=== PATIENT | female | born 1950 | race Caucasian/White ===

== ENCOUNTER → 2021-04-14 16:36 | Outpatient (CLI) | payer OTHER, MEDICARE, SELFPAY ==
[2021-04-14 18:31] LABS: Add Manual Diff / Slide Review NO; Basophils Absolute Auto 100 /uL (0-100); Basophils Percent Auto 1.2 % (0-2); Eosinophils Absolute Auto 200 /uL (0-450); Hematocrit 37.2 % (36-46); Hemoglobin 12.8 g/dL (12.0-16.0); Lymphocytes Absolute Auto 2700 /uL (1100-4500); Lymphocytes Percent Auto 30.8 % (25-40); Mean Corpuscular HGB Conc 34.4 % (30-36); Mean Corpuscular Hemoglobin 30.2 PG (26-34); Mean Corpuscular Volume 87.9 fL (80-100); Monocytes Absolute Auto 700 /uL (0-900); Neutrophils Absolute Auto 5000 /uL (1500-7000); Platelet Count 303 X10^3/uL (150-400); Red Blood Cell Count 4.23 X10^6/uL (4.0-5.2); Red Cell Distribution Width 13.3 % (11.6-14.8); White Blood Cell Count 8.6 X10^3/uL (4.5-11.0)
[2021-04-14 18:42] LABS: INR 1.1 (0.9-1.3); Prothrombin Time 11.9 SECONDS (10.1-12.7)
[2021-04-14 18:44] LABS: PTT Partial Thromboplastin Tim 33 SECONDS (26.4-36.2)
== END ==
PROVIDERS: PCP Family Medicine; Referring Provider Orthopaedic Surgery Orthopaedic Surgery of the Spine; Visit Provider Orthopaedic Surgery Orthopaedic Surgery of the Spine
DX: Z01.812 Encounter for preprocedural laboratory examination (principal); Z51.81 Encounter for therapeutic drug level monitoring
CPT/HCPCS: 36415; 85025; 85610; 85730

== ENCOUNTER → 2021-04-22 11:15 | Outpatient (CLI) | payer OTHER, MEDICARE, SELFPAY ==
[2021-04-22 12:50] LABS: COVID19 -Nasal RAPID Negative (Negative)
== END ==
PROVIDERS: PCP Family Medicine; Visit Provider Physician Assistant
DX: Z01.812 Encounter for preprocedural laboratory examination (principal); Z20.822 Contact with and (suspected) exposure to COVID-19
CPT/HCPCS: 87635

== ENCOUNTER 2021-04-24 11:46 | Observation (INO) | payer OTHER, MEDICARE, SELFPAY ==
[2021-04-17 09:41] VITALS: BMI 27.1
[2021-04-24] VITALS (15 sets, daily range): BP systolic 92–142; BP diastolic 31–88; PULSE 76–93; RESP 10–93; TEMP 35.8–36.9; O2SAT 16–99; BMI 27.1
[2021-04-24] MEDS: LACTATED RINGERS 1,000 ML 42 ML IV ×4 (12:53→17:15)
--- NOTE | 2021-04-24 13:04 | PM.PREOP ---
Pre-operative Note COVID-19 COVID-19 status: Negative Result date/Date tested (Pos, Neg/Pending): 04/22/21 Interval Note History & Physical reviewed/Exam performed by Physician: Yes Changes to H&P: No
[2021-04-24] MEDS: CEFAZOLIN 1 GM VIAL 2 GM IV ×2 (14:00→21:14)
--- NOTE | 2021-04-24 14:24 | SUR.OPER ---
Supine, head on gel donut. Tape across forehead secured to bed, Arms padded with gel pads, tucked at sides, towel roll under shoulders. Safety belt at thigh. pillow under knees, gel pad under bilateral heels, Legs uncrossed.
[2021-04-24] MEDS: THROMBIN (RECOMBINANT) 5,000 UNIT VIAL 5000 UNIT TOP ×2 (15:12→15:36)
[2021-04-24] MEDS: TRANEXAMIC ACID 1,000 MG in SODIUM CHLORIDE 0.9% 100 ML 200 ML IV (15:35)
--- NOTE | 2021-04-24 16:22 | DI.RAD.S_ITS ---
PROCEDURE: XR CERVICAL SPINE 2V OR 3V INDICATIONS: c4-5 ACDF TECHNIQUE: 2 view(s) of the cervical spine were acquired. COMPARISON: None. FINDINGS: Bones: Anterior cervical discectomy and plate fixation across the C4-C5 level with interbody disc spacer in place shows normal alignment. Soft tissues: No prevertebral soft tissue swelling. IMPRESSION: Normal alignment after C4-C5 anterior discectomy and fusion procedure. Fusion plate appears normal. Dictated by: Elver Lundberg M.D. on 04/24/2021 at 16:59 Approved by: Elver Lundberg M.D. on 04/24/2021 at 17:00
--- NOTE | 2021-04-24 16:36 | PM.OP.1 ---
Operative Date/Time/Diagnoses Date of procedure: 04/24/21 Time of procedure: 13:40 Pre-op diagnosis: 1. C4-5 spinal stenosis 2. C4-5 spondylosis with radiculopathy Post-op diagnosis: same Procedure & Clinicians Procedure: 1. C4-5 anterior cervical discectomy and fusion 2. C4-5 anterior interbody cage placement. 3. C4-5 anterior instrumentation with plate and screws 4. Utilization of microsurgical technique and operating microscope Same procedure as scheduled: Yes Indications: Patient has been having chronic neck pain and worsening cervical radiculopathy. Patient failed multiple conservative management with worsening pain weakness and numbness in her upper extremity. Patient has been having difficulty performing activity of daily living. After discussing risks benefits of treatment options, patient elected proceed with surgery. Surgeon: Nato Nassar Linux System Administrator: Raymond Centeno Click Yes if Unassisted: No Anesthesia Type: General Operative Notes Closure Type: primary Specimen(s): none sent Prosthetic devices, grafts, tissues, transplants, or devices: Extend plate, PEEK cage Estimated Blood Loss (mL): 1,000 Blood products transfused: none Procedure in detail: Patient was seen in the preoperative area. Risks and benefits of the surgery was discussed with the patient. Informed consent was obtained from the patient and placed in the chart. Surgical site was marked. Patient was taken to the operative room. General anesthesia was administered. Prophylactic antibiotic was given to the patient less than 30 min before the incision was made. Patient was placed into a supine position on a radiolucent table. Patient's shoulders were taped down to allow proper C-arm imaging. Anterior cervical area was prepped and draped in a sterile fashion. Time-out was performed at this time. Using lateral C-arm imaging, the level between C4 and C5 was identified and marked on patient's neck. A oblique incision from midline towards medial border of sternocleidomastoid muscle was made. The platysma muscle was incised in line with skin incision. Metzenbaum scissor was used to develop the plane between the medial border of sternocleidomastoid d and the strap muscles medially. The carotid sheath and its contents were identified and protected behind the hand-held retractor during the entire case. The plane between the carotid sheath and strap muscles was developed with Metzenbaum scissors. Dissection was made down to the level of the anterior cervical fascia. Longus colli muscle was incised on the anterior aspect of vertebral bodies bilaterally from C4-5. Spinal needle was placed into the C4-5 disc space and confirmed with lateral C-arm imaging. During dissection through longus coli to expose anterior vertebral body and disc space at C4-5 level, arterial blood was encountered through the dissection. Microscope was used to further evaluate the bleeding. The source of bleeding was not able to be visualized. The arterial bleeding comes from adjacent to the anterior lateral cortex of C4-5 endplates on the left side. Gelfoam and thrombin was used in combination as tamponade/hemostasis agent. Good hemostasis was accomplished by using the combination of the 2 agents. During the process of attempting to achieve hemostasis approximately 950 cc of blood was lost. The carotid artery and contents of the carotid sheath was protected during the hand held retractors during the entire procedure and the bleeding was not related to structures inside the carotid sheath or as a branch of carotid artery. Patient's carotid artery pulse was palpable and the source of bleeding is significantly more posterior compared to the level of the carotid artery. At this time decision was made to perform the anterior cervical diskectomy and C4-5 level and postpone the surgery at C3-4 level for the concerns of additional bleeding. Using microsurgical technique and operative microscope, anterior cervical diskectomy was performed at C4-5 level. This was done by removing the disc material, removing the anterior and posterior osteophytes posterior longitudinal ligaments along with performing bilateral foraminotomies at the C4-5 levels. Patient was found to have severe foraminal stenosis. Patient's stenosis was fully decompressed after decompression was completed. After the diskectomy was completed, an anterior interbody cage was obtained. The cage was packed with DBM bone grafting material. One cage each along with the bone grafting material was then packed into the interbody space at C4-5 along with an anterior cervical plate. The cervical plate was stabilized to the C4-5 vertebrae using screws. After confirming placement of the hardware with AP and lateral C-arm imaging, the screws were locked into the plate using the locking mechanism and torque limiting screwdriver. During the course of the anterior cervical diskectomy and fusion portion of the procedure, there was minimal bleeding. A OSWALDO drain was placed deep to the platysma muscle and was secured the patient's skin after the drain was placed. I plan to leave the drain at least overnight and possibly discharge the patient with the drain in case of additional bleeding that takes place. After the hardware was placed and confirmed with AP and lateral C-arm imaging, the wound was irrigated with sterile normal saline. The platysma muscle and the subcutaneous tissue was closed with 2-0 Vicryl. The skin was closed with 4-0 Monocryl and Steri-Strips. Patient tolerated the procedure well. Patient was transferred recovery room in stable condition. Complications: none Post-operative Condition: stable Disposition: PACU Plan for aftercare: Admit to inpatient hospital
[2021-04-24] MEDS: LORazepam 2 MG/ML INJ 0.25 MG IV ×2 (16:49→17:00)
[2021-04-24] MEDS: fentaNYL 100 MCG/2 ML INJ IV (17:12)
--- NOTE | 2021-04-24 17:15 | SUR.PHASEI ---
Pt received to PACU at 1616. Airway patent, self maintained. Report from ISABEL Mercado and Dr Duong.
--- NOTE | 2021-04-24 17:16 | SUR.PHASEI ---
Blood sugar: 1626 - glucocheck result = 231 on right finger. Pt monitor = 123. 1630 - glucocheck result = 218 on left finger. Pt monitor = 141. 1700 - Dr Duong at bedside. Updated on status. Lab at bedside to draw CBC. Blood glucose added by Dr Duong. Nausea - 1630 - Pt states nauseated. Ice pack placed behind neck. Quesease taped to neck brace. Few ice chips given to wet mouth. Ativan x2 given. 1715 -Pt currently dozing. Bleeding - Scant bloody drng in OSWALDO. Neck dressing remains D/I. SBP remains 90-100's after hydrolozine in the OR. MAP 50's-60's. Heart rate 80-90's.
[2021-04-24 17:19] LABS: Add Manual Diff / Slide Review NO; Basophils Absolute Auto 0 /uL (0-100); Basophils Percent Auto 0.4 % (0-2); Eosinophils Absolute Auto 0 /uL (0-450); Eosinophils Percent Auto 0.3 % (2-4); Hematocrit 25.1 % (36-46); Hemoglobin 8.5 g/dL (12.0-16.0); Lymphocytes Absolute Auto 900 /uL (1100-4500); Lymphocytes Percent Auto 8.9 % (25-40); Mean Corpuscular HGB Conc 33.9 % (30-36); Mean Corpuscular Volume 88.4 fL (80-100); Monocytes Absolute Auto 100 /uL (0-900); Monocytes Percent Auto 1.3 % (3-14); Neutrophils Absolute Auto 9300 /uL (1500-7000); Neutrophils Percent Auto 89.1 % (50-75); Platelet Count 225 X10^3/uL (150-400); Red Blood Cell Count 2.84 X10^6/uL (4.0-5.2); White Blood Cell Count 10.4 X10^3/uL (4.5-11.0)
[2021-04-24] MEDS: SODIUM CHLORIDE 0.9% 1,000 ML 100 ML IV (19:02)
[2021-04-24] MEDS: ATORVASTATIN 20 MG TABLET 40 MG PO (21:13)
[2021-04-24] MEDS: SENNOSIDES 8.6 MG TABLET 17.2 MG PO (21:13)
[2021-04-24] MEDS: DOCUSATE 100 MG CAPSULE PO (21:14)
[2021-04-24] MEDS: VALSARTAN 80 MG TABLET PO (21:14)
[2021-04-24] MEDS: METOPROLOL ER 50 MG TABLET PO (21:14)
[2021-04-24] MEDS: MONTELUKAST 10 MG TABLET PO (21:14)
[2021-04-24] MEDS: OXYCODONE IR 5 MG TABLET PO (21:14)
[2021-04-24] MEDS: LORazepam 1 MG TABLET PO (21:20)
[2021-04-25] MEDS: HYDROMORPHONE 0.5 MG INJ 0.2 MG IV (01:57)
[2021-04-25 02:00] VITALS: BP 108/53; PULSE 88; RESP 20; TEMP 35.9; O2SAT 95
[2021-04-25] MEDS: OXYCODONE IR 5 MG TABLET PO ×4 (02:42→11:50)
[2021-04-25 05:00] VITALS: BP 118/61; PULSE 85; RESP 14; TEMP 36.4; O2SAT 98
[2021-04-25] MEDS: CEFAZOLIN 1 GM VIAL 2 GM IV (05:23)
[2021-04-25] MEDS: SODIUM CHLORIDE 0.9% 1,000 ML 100 ML IV (05:24)
[2021-04-25 06:05] LABS: Hematocrit 27.4 % (36-46); Hemoglobin 9.2 g/dL (12.0-16.0)
[2021-04-25] MEDS: LEVOTHYROXINE 125 MCG TABLET PO (06:59)
[2021-04-25] MEDS: ACETAMINOPHEN 325 MG TABLET 650 MG PO (08:31)
[2021-04-25] MEDS: CHOLECALCIFEROL (VITAMIN D3) 1,000 UNIT TABLET 1000 UNIT PO (08:35)
[2021-04-25] MEDS: LORATADINE 10 MG TABLET PO (08:35)
[2021-04-25] MEDS: DOCUSATE 100 MG CAPSULE PO (08:36)
--- NOTE | 2021-04-25 09:47 | P.PN_ITS ---
Exam Vital Signs (past 8 hours): - 04/25/21 02:00 04/25/21 05:00 Temperature 96.7 F L 97.5 F L Pulse Rate 88 85 Respiratory Rate 20 14 Blood Pressure 108/53 L 118/61 Pulse Oximetry 95 98 Oxygen Delivery Method Room Air,CPAP Oxygen Flow Rate 1 Objective Labs Result Diagrams: 04/25/21 05:43 Labs: Laboratory Results - last 24 hr 04/24/21 04/25/21 17:06 05:43 WBC 10.4 RBC 2.84 L Hgb 8.5 L 9.2 L Hct 25.1 L 27.4 L MCV 88.4 MCH 30.0 MCHC 33.9 RDW 13.0 Plt Count 225 Neut % (Auto) 89.1 H Lymph % (Auto) 8.9 L [place] % (Auto) 1.3 L Eos % (Auto) 0.3 L Baso % (Auto) 0.4 Neut # (Auto) 9300 H Lymph # (Auto) 900 L [place] # (Auto) 100 Eos # (Auto) 0 Baso # (Auto) 0 PFSH Medical History (Updated 04/17/21 @ 13:58 by Mary Pham RN) Anxiety Arthritis Asthma 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 Diverticulosis Fatty liver Fibromyalgia Gastroparesis Hearing impaired Histoplasmosis HLD (hyperlipidemia) HTN (hypertension) Hypothyroid Insulin pump in place MRSA (methicillin resistant Staphylococcus aureus) Neuropathy NSVT (nonsustained ventricular tachycardia) (2015) ROLANDO on CPAP Palpitations RAD (reactive airway disease) Skin cancer Tachycardia Type 1 diabetes Surgical History (Updated 04/17/21 @ 10:42 by Mary Pham RN) History of bowel resection History of lobectomy of lung (1986) History of lumbar surgery History of repair of left rotator cuff History of repair of right rotator cuff History of surgery History of total right hip arthroplasty Hx of appendectomy Hx of bilateral cataract extraction Hx of cervical spine surgery (2007) Hx of cholecystectomy Hx of hand surgery Hx of hand surgery Hx of sinus surgery Hx of tonsillectomy S/P MAHNAZ-BSO (total abdominal hysterectomy and bilateral salpingo-oophorectomy) Social History household members: children Smoking Status: Never smoker alcohol intake: never Assessment & Plan Assessment & Plan narrative: POD#1 s/p C4-5 ACDF. Patient had intra-operative vascular injury responded to temponade with gemfoam and thrombin. 30 cc from OSWALDO drain since surgery. She is doing well with normal BP and pulse and HCT is 27 this am improved from 25 yesterday. Her dressing is clean and dry. Patient is neurovascularly intact on exam. Her neck is supple, no significant swelling and no sign or symptoms or residual active bleeding. Mild hoarseness in her speaking voice and mild sore throat with swallowing as expected post op day 1 s/p ACDF. Patient is doing well. Patient reports improved pain level that was severe and radiates down her shoulders since surgery. The severe radiating pain down both shoulders were here previous chief complaint, this has resolved since she woke up from surgery. I discussed with her and her daughter her surgery, the decision to not operated on C3-4 level and her intraoperative bleeding. She is doing well and mobile with good pain control. I discussed discharge to home today and patient and her daughter both think they are ready to discharge to home today. I will let her complete her PT session. Plan to d/c today to home. I will d/c her with her OSWALDO drain and educated her and her daughter in case of emergent bleeding surgery how to use the drain to help decompress patient's neck/wound to protect airway. Patient and daughter both understands instructions for activity and drain management and plans for discontinue the drain on Tuesday in my [facility]. Quality VTE Deep Vein Thrombosis/Pulmonary Embolism Present on Admission: No
--- NOTE | 2021-04-25 09:53 | OT.IP.EVAL ---
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 Diverticulosis Fatty liver Fibromyalgia Gastroparesis Hearing impaired Histoplasmosis History of bowel resection History of lobectomy of lung (1986) History of lumbar surgery History of repair of left rotator cuff History of repair of right rotator cuff History of surgery History of total right hip arthroplasty HLD (hyperlipidemia) HTN (hypertension) Hx of appendectomy Hx of bilateral cataract extraction Hx of cervical spine surgery (2007) Hx of cholecystectomy Hx of hand surgery Hx of hand surgery Hx of sinus surgery Hx of tonsillectomy Hypothyroid Insulin pump in place MRSA (methicillin resistant Staphylococcus aureus) Neuropathy NSVT (nonsustained ventricular tachycardia) (2015) ROLANDO on CPAP Palpitations RAD (reactive airway disease) S/P MAHNAZ-BSO (total abdominal hysterectomy and bilateral salpingo-oophorectomy) Skin cancer Tachycardia Type 1 diabetes Surgical History (Last Updated 04/17/21 @ 10:42 by Mary Pham, RN) History of bowel resection History of lobectomy of lung (1986) History of lumbar surgery History of repair of left rotator cuff History of repair of right rotator cuff History of surgery History of total right hip arthroplasty Hx of appendectomy Hx of bilateral cataract extraction Hx of cervical spine surgery (2007) Hx of cholecystectomy Hx of hand surgery Hx of hand surgery Hx of sinus surgery Hx of tonsillectomy S/P MAHNAZ-BSO (total abdominal hysterectomy and bilateral salpingo-oophorectomy) Occupational Therapy Inpatient Evaluation/Re-Eval M1 PT/OT-IP Prior Functional Status Start: 04/25/21 11:18 Freq: NEEDED Status: Active Protocol: Document 04/25/21 11:18 CGR (Rec: 04/25/21 11:32 CGR [id number]) Medical Review Prior Functional Status Medical History Reviewed Yes Communication Pt is an effective verbal communicator Mobility and Gait Pt was IND at baseline Activities of Daily Living and IADL's Pt was IND in ADLs at baseline . Pt states she sometimes uses LB dressing equipment d/t a previous R RICARDO. Social History Household Members children Living Arrangements House Number of Floors (Floors) Two Floors Number of Stairs To Enter/Railing? Pt lives on the first floor and does not need to go to the second floor. Pt has 3 steps to enter with L rail assending . Home Environment Standard Height Toilet,Walk in Shower Home Equipment Front Wheel Walker,Raised Toilet Seat w/Armrests,Shower Seat with Backrest,Grab Bars In Shower Additional Social History Comment Adjustable bed with L side rail. M2 OT-IP Current Condition Start: 04/25/21 11:18 Freq: Status: Active Protocol: Document 04/25/21 11:18 CGR (Rec: 04/25/21 11:32 CGR [id number]) Occupational Therapy Current Condition Current Condition Evaluation Date 04/25/21 Treatment Diagnosis c4-5 ACDF Diagnosis Onset Date 04/24/21 Post Operative Precautions Cervical Spine Precautions Soft Collar for Comfort,No Heavy Lifting,Log Roll M3 OT- IP Subjective and Pain Start: 04/25/21 11:18 Freq: Status: Active Protocol: Document 04/25/21 11:18 CGR (Rec: 04/25/21 11:32 CGR [id number]) OT- Subjective Occupational Therapy Visit Type Type Initial Evaluation Visit Start Time 09:28 Visit Stop Time 09:53 Total Visit Minutes 25 OT Pain Assessment Pain When Pain Assessed At Rest Pain Present Pain Present Pain Reported Location neck Intensity 4 Scale Used Numeric (0 - 10) Management Techniques Distraction,Modification of Treatment,Re-positioning, Timing of Activity with Medications M4 OT- IP ADL's Start: 04/25/21 11:18 Freq: Status: Active Protocol: Document 04/25/21 11:18 CGR (Rec: 04/25/21 11:32 CGR [id number]) OT [id number] Comments OT Self-Feeding Comments Not meal time but pt states that she was able to eat breakfast without difficulty. OT ADL-Grooming General Evaluation Grooming Ability Independent Areas Needing Assistance Face Washing Comments OT Grooming Comments standing at sink OT ADL-Oral Care General Eval Oral Care Ability Independent Areas of Assistance Brushing Teeth,Retrieving/Set- Up of Items Comments Oral Care Comments standing at sink OT ADL-Dressing General Eval Lower Body Dressing Ability Independent Areas Needing Assistance Socks Comments OT Dressing Comments seated EOB OT ADL-Toileting General Evaluation Toileting Ability Independent Comments OT Toileting Comments seated on toielt, pt states she feels like she needs to urinate but was unable. OT ADL-Bathing Comments OT Bathing Comments not performed M5 OT- IP IADL's Start: 04/25/21 11:18 Freq: Status: Active Protocol: Document 04/25/21 11:18 CGR (Rec: 04/25/21 11:32 CGR [id number]) OT-Instrumental Activities of Daily Living Deficits IADL Deficits Identified No Deficits Home Safety Awareness Awareness of Need for Assistance at Home Good Awareness Ability to Problem Solve Emergency Able to Problem Solve Situations Medication Management Medication Management No Deficits Identified Money Management Money Management No Deficits Identified Meal Preparation Meal Preparation No Deficits Identified Latrine Cleaner Latrine Cleaner No Deficits Identified Driving Driving Comments PT is an active driver supervisor. M6 OT- IP Functional Cognition Start: 04/25/21 11:18 Freq: Status: Active Protocol: Document 04/25/21 11:18 CGR (Rec: 04/25/21 11:32 CGR [id number]) Cognitive Factors Limiting Selfcare Function Cognitive Ability Level of Alertness Alert Patient Orientation Name,Age,Birthday,Month,Date, Year,Day of Week,Place, Situation Attention Span Ability Capable of Focused Attention, Capable of Sustained Attention Ability to Follow Commands Able to Follow One Step Commands with Increased Time, Able to Follow One Step Commands with Repetition OT- Vision and Hearing OT- Hearing Assessment OT- Hearing Assessment Hearing Impaired,Use of Hearing Aids OT- Vision Assessment Vision History Cataracts Visual Acuity Glasses For Reading Visual Attentiveness WFL Occular Pursuits WFL Visual Convergence WFL M7 OT- IP Mobility and Balance Start: 04/25/21 11:18 Freq: Status: Active Protocol: Document 04/25/21 11:18 CGR (Rec: 04/25/21 11:32 CGR [id number]) OT- Bed Mobility Assessment Rolling Type of Rolling Log Rolling,Roll to Right Level of Assistance Independent Supine to Sit Supine to Sit Assist Independent Scooting Scooting to Edge of Bed Independent OT-Transfer Assessment Sit to and From Stand Sit to and from Stand Independent Transfers Transfer Ability Independent Technique Transfer Destination Bed,Chair,Toilet Transfer Technique Stand Step Pivot Devices Transfer Assistive Devices Gait Belt,Front Wheeled Walker Comments Mobility Comments Pt ambulated around the room with the use of the 2ww and IND. OT- Balance Assessment Sitting Balance and Reactions Static Sitting Balance Ability Normal Dynamic Sitting Balance Ability Normal M8 OT- IP Objective Assessments Start: 04/25/21 11:18 Freq: Status: Active Protocol: Document 04/25/21 11:18 CGR (Rec: 04/25/21 11:32 CGR [id number]) OT Gross Range of Motion Upper Extremity Range of Motion Assessment Within Functional Limits OT Strength Upper Extremity Strength Assessment Within Functional Limits OT- Coordination Assessment Upper Extremity Finger to Nose Test Within Functional Limits Finger Tapping Test Within Functional Limits OT-Muscle Tone Assessment Muscle Tone WNL Yes OT Sensation Assessment Edema Edema Absent M9 OT- IP Assessment and Plan Start: 04/25/21 11:18 Freq: Status: Active Protocol: Document 04/25/21 11:18 CGR (Rec: 04/25/21 11:32 CGR [id number]) OT Summary Assessment and Plan Potential Rehabilitation Potential Excellent Analytic Complexity at Evaluation Low Summary OT Impairments Pain Progress Towards Goals Safe For Discharge Assessment Summary Pt presents as a low complexity evaluation s/p admit for C4-5 ACDF. Pt presents as IND with walker and is able to care for herself without assist at this time. Pt lives with daughter who will help if needed. No further OT needs. Frequency of Treatment Frequency Of Treatment Discharge Discharge Recommendations OT Discharge Recommendations Home Transportation Needs at Discharge Private Vehicle
--- NOTE | 2021-04-25 10:15 | PT.IIE ---
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 Diverticulosis Fatty liver Fibromyalgia Gastroparesis Hearing impaired Histoplasmosis HLD (hyperlipidemia) HTN (hypertension) Hypothyroid Insulin pump in place MRSA (methicillin resistant Staphylococcus aureus) Neuropathy NSVT (nonsustained ventricular tachycardia) (2015) ROLANDO on CPAP Palpitations RAD (reactive airway disease) Skin cancer Tachycardia Type 1 diabetes Physical Therapy Inpatient Evaluation/Re-Eval M1 PT/OT-IP Prior Functional Status Start: 04/25/21 11:18 Freq: NEEDED Status: Active Protocol: Document 04/25/21 11:18 CGR (Rec: 04/25/21 11:32 CGR [id number]) Medical Review Prior Functional Status Medical History Reviewed Yes Communication Pt is an effective verbal communicator Mobility and Gait Pt was IND at baseline Activities of Daily Living and IADL's Pt was IND in ADLs at baseline . Pt states she sometimes uses LB dressing equipment d/t a previous R RICARDO. Social History Household Members children Living Arrangements House Number of Floors (Floors) Two Floors Number of Stairs To Enter/Railing? Pt lives on the first floor and does not need to go to the second floor. Pt has 3 steps to enter with L rail assending . Home Environment Standard Height Toilet,Walk in Shower Home Equipment Front Wheel Walker,Raised Toilet Seat w/Armrests,Shower Seat with Backrest,Grab Bars In Shower Additional Social History Comment Adjustable bed with L side rail. M2 PT-IP Current Condition Start: 04/25/21 11:48 Freq: NEEDED Status: Active Protocol: Document 04/25/21 10:15 AB (Rec: 04/25/21 12:01 AB [id number]) Physical Therapy Current Condition Current Condition Evaluation Date 04/25/21 Treatment Diagnosis s/p C4-5 ACDF; difficulty in walking Onset Date 04/24/21 Precautions Cervical Spine Precautions Soft Collar for Comfort,No Heavy Lifting,Log Roll M3 PT-IP Subjective Start: 04/25/21 11:48 Freq: NEEDED Status: Active Protocol: Document 04/25/21 10:15 AB (Rec: 04/25/21 12:01 [email or web address]) Subjective Physical Therapy Visit Type Type Initial Evaluation Visit Start Time 10:15 Visit Stop Time 10:50 Total Visit Minutes 35 Number of METAL EXTRUSION SUPERVISOR Visits 0 Physical Therapy Visit Comments Patient Comments pt is agreeable to do PT Therapy Pain Assessment Pain When Pain Assessed At Rest Pain Present Pain Present Pain Reported Location neck Intensity 3 Scale Used Numeric (0 - 10) Pain Management Techniques Apply Cold,Distraction, Modification of Treatment,Re- positioning,Timing of Activity with Medications M4 PT-IP Mobility and Gait Start: 04/25/21 11:48 Freq: NEEDED Status: Active Protocol: Document 04/25/21 10:15 AB (Rec: 04/25/21 12:01 [email or web address]) PT-Bed Mobility Assessment Rolling Type of Rolling Log Rolling Level of Assist Standby Assistance Supine to Sit Supine to Sit Standby Assistance Sit to Supine Sit to Supine Standby Assistance PT-Transfer Assessment Sit to and From Stand Sit to and from Stand Standby Assistance,Use of Upper Extremities Equipment Transfer Assistive Device Gait Belt,Front Wheeled Walker Orthotic/Prosthetic Devices or Brace: Yes Transfers Transfer Destination Bed,Chair Transfer Technique ambulated using FWW Transfer Ability Level of Assist Standby Assistance Comments Mobility Comments reviewed cervical precautions with pt and pt able to recall. pt already seated on chair and agreed to do PT. completed sit to stand SBA and ambulated to the bed using FWW SBA. demonstrated log roll supine<>sit SBA. pt agreed to ambulate in the hallway and completed 125 ft using FWW SBA . (+) slight LOB x 1 but able to recover and rebalance without assist needed. pt stated that she has chronic L hip problem and is needing surgery and that makes her off balance. pt completed up/ down stair using L rail ascending SBA. pt ambulated back to her room and sat on the chair. positioned on chair. call light and table placed within reach. left pt with daughter in room pt is comfortable to go home today. Gait Assessment Gait Gait Assistance Required: Standby Assistance Distance (Feet) 125 Able to Maintain Weight Bearing Status Yes During Gait Assistive Devices Assistive Device Gait Belt,Front Wheeled Walker Orthotic/Prosthetic Devices or Brace: No Gait Deviations General Gait Pattern Antalgic,Decreased Stride Length,Decreased Feet Clearance Factors Limiting Gait Function Factors Limiting Gait Function Decreased Activity Tolerance, Decreased Strength,Limited Range of Motion,Pain,Poor Balance Stair Climbing Assessment Evaluation Level of Assist On Stairs Standby Assistance Devices Stair Climbing Assistive Devices Left Railing Technique/Endurance Stair Climbing Direction Ascend and Descend Stair Climbing Technique Step Over Step Number of Steps Climbed 3 Query Text: Stair Climbing Set # Repetitions (reps) 1 PT-Balance Assessment Sitting Balance and Reactions Static Sitting Balance Ability Normal Dynamic Sitting Balance Ability Normal Standing Balance and Reactions Static Standing Balance Ability Good Dynamic Standing Balance Ability Fair Device Used FWW M5 PT-IP Objective Assessments Start: 04/25/21 11:48 Freq: NEEDED Status: Active Protocol: Document 04/25/21 10:15 AB (Rec: 04/25/21 12:01 [email or web address]) Orientation Orientation/Cognition Level of Alertness Alert Orientation Name,Place,Situation Language Function Ability No Deficits Noted Safety Awareness Understands Safety Issues Memory Description No Deficits Noted Gross Range of Motion Lower Extremity ROM Assessment Within Functional Limits Strength Lower Extremity Strength Assessment Left Impaired Hip 3+/5 Knee 3+/5 Coordination Assessment Gross Coordination Gross Coordination WNL Sensation Assessment Sensation Gross Sensation WNL Muscle Tone Muscle Tone WNL Yes M6 PT-IP Treatment Start: 04/25/21 11:48 Freq: NEEDED Status: Active Protocol: Document 04/25/21 10:15 AB (Rec: 04/25/21 12:01 [email or web address]) Physical Therapy Treatment Education Education Provided Precautions,Weight Bearing Status,Post-Op Packet,Safety M7 PT-IP Assessment and Plan Start: 04/25/21 11:48 Freq: NEEDED Status: Active Protocol: Document 04/25/21 10:15 AB (Rec: 04/25/21 12:01 [email or web address]) PT Summary Assessment and Plan Potential Rehabilitation Potential Good Status of Condition at Evaluation Stable Summary Impairments Pain,ROM,Strength,Balance,Bed Mobility,Transfers,Gait, Activity Tolerance Assessment Summary pt requiring SBA with mobility . recommending use of FWW at this time for safety and steadiness. pt plans to go home and her daughter will assist her at home. pt may go home when medically stable. Goals Bed Mobility Goal Independent Transfer Goal Independent,Front Wheeled Walker Gait Goal Independent,Front Wheel Walker Gait Distance 200 Other Goals ambulation without AD 100 ft SBA up/down steps using L rail ascending mod I Days to Meet Goals 3 Frequency of Treatment Frequency Of Treatment Twice a Day Treatment Plan Physical Therapy Treatment Plan Bed Mobility Training,Transfer Training,Gait Training, Therapeutic Exercise,Balance Retraining,Post Op Education, Discharge Planning,Hot or Cold Pack,Neuromuscular Re-ed, Coordination Retraining,Manual Therapy Precautions Cervical Spine Precautions Soft Collar at all Times,No Heavy Lifting,Log Roll Recommendations To Nursing Amount of Assist Needed Standby Assistance Discharge Recommendations PT Discharge Recommendations Home with Assistance Transportation Needs at Discharge Private Vehicle
[2021-04-25] MEDS: hydrOXYzine pamoate 25 MG CAPSULE PO (11:50)
--- NOTE | 2021-04-25 12:56 | CM.DANOTE ---
Addendum entered by Madina Wyman LPN 04/25/21 13:21: Checked in with pt now. She said she was comfortable with the plan for a d/c to home today. She did note that she was starting to get very chilled and wondered if an H&H had been checked today. RN coordinator Syeda did check and confirmed this was done at 0500 this morning and showing a trend up from yesterday. ISABEL Burrows is currently in room starting to go over the d/c instructions. Home today, followup Tuesday. [place]i is in room and present for all the d/c information. Addendum entered by Madina Wyman LPN 04/25/21 13:09: Pt does also have Medicare. Original Note: Discharge Planning/Care Management DCP: assessment: case received, EMR reviewed and discussed in Team Rounds. PT and OT to see pt today. A d/c order to home is now noted. Pt is a 70 year old female who admitted 04/24 for a scheduled spinal/cervical surgery. Multiple medical co morbidities are noted. Dr. Nassar was here and has ok'd pt for home today after PT session drain to be kept in place until he sees pt in clinic 04/27. Pt with a bleed in place during the surgery. She is going home with her daughter Mali's support. Admission status: INPT. Payer: Prakash Naik (is noted that pt is 70...? Medicare also) Will check in with pt now. CM Discharge Assessment Start: 04/25/21 12:55 Freq: Status: Active Protocol: Document 04/25/21 12:55 ITV (Rec: 04/25/21 12:56 ITV [id number]) Discharge Planning Assessment Advance Directives? Yes Advance Directives on File No History Provided By Medical Record Prior Living Arrangements House Household Members children Comment adult daughter [place] Independent with ADL's Yes Is patient alert and oriented? Yes Discharge Plan Home Pre-Anesthesia Assessment Start: 04/17/21 09:41 Freq: Status: Complete Protocol: Document 04/17/21 09:41 CAB (Rec: 04/17/21 10:52 CAB [id number]) Pre-Anesthesia Assessment Patient Information Reviewed Via Phone Assessment Assessment Completed With Patient Diagnostic Results CBC,PT/INR Comment CBC only, pt needs to do additional labs today, COVID screen @ 04/22/21 Primary Care Provider Seb Larson Seen Specialist in Last 12 Months Yes Specialist Seen Vertical Boring Mill Operator,Abstract Clerk, Orthopedist Comment Endocrinology visit 03/24/21 scanned to record Primary Language Romanian Height 167.64 cm Weight 76.204 kg Body Mass Index (BMI) 27.1 Hearing Ability Hard of Hearing,Use of Hearing Aid Visual Assist Glasses Dentition Type Partial- Lower,Full- Upper Barriers to Learning None Other Aids Yes: CPAP, Insulin pump Hx Anesthesia Reactions No Hx Family Anesthesia Reaction No Hx Malignant Hyperthermia No Hx Blood Transfusions Yes: r/t hip replacement '19 Hx Blood Transfusion Reaction No Anesthesia Review Requested No alcohol intake never Smoking Status Never smoker Substance Use Type marijuana Comment Occasional THC/CBD gummies Pain Present Pain Reported Musculoskeletal Symptoms Abnormal Gait,Arthralgias,Back Pain,Difficulty Walking,Joint Pain,Limited Range of Motion, Myalgias,Radiating Pain into Limb History of Falling (Recent or History of Yes ) Patient is completely paralyzed or No completely immobile Comment Balance issues Is patient on oxygen? No Does patient have GONZALEZ/SOB Yes: Asthma Hx Sleep Apnea Yes CPAP/BIPAP use prescribed and used routinely Will Bring CPAP/BIPAP DOS Yes Currently Taking a Beta Jamari Yes: Metoprolol Can You Climb a Flight of Stairs Without No SOB Hx Chest Pain Yes: 2016 Hx SOB Yes: Asthma Hx Syncope or Dizziness Yes: Dizziness with high/low blood sugars Anti-Coagulant Therapy No Has a Vertical Boring Mill Operator Yes: Dr. Denny-last visit 04/24/20 Cardiac Testing Stress echo 05/28/20 @ [facility] Hx Pacemaker/ICD No Pacemaker Rep Required? No Comment Cardiology records scanned Diet Type At Home Regular dysphagia Yes: Liquids Gastrointestinal Symptoms Constipation,Reflux,Vomiting Comment Hx gastroparesis Bladder Pattern Retention Urinary Catheter Present No Hx Urinary Self Catheterization Yes: Prn r/t retention Diabetes Yes: Type I with insulin pump Patient No Lactating No Presence of External or Internal Medical Yes: Insulin pump, CPAP, Devices hearing aids, right hip Have you had any close contact with No someone diagnosed with COVID-19? Marital Status / Lives With children Prior Living Arrangements House Support System Child/Children Patient Discharge Plan Description Return Home Comment Pt advised overnight length of stay per surgeon Feels Safe in Current Environment Yes Been Physically Hurt or Threatened By a No Person in Current Environment Do you have thoughts of harming yourself None or others? Are you currently considering suicide? No Do you have a plan to hurt yourself or No Plan others? Do You Have Any Spiritual Beliefs That No May Affect Your HC Choices? Do You Have Any Cultural Practices That No May Affect Your HC Choices? Comment Raymond Who Can We Speak to About Patient's Care Family, friends Identifying Code for Release of Patient Declines to issue Information Health Care Proxy/Next of Kin Mali (daughter) Health Care Proxy Emergency Contact Name Mali (daughter) Emergency Contact Advance Directives? Yes Advance Directives on File No Requested Patient Bring Advanced Yes Directives DOS Power of Inspector Of Weights And Measures No PAC Instructions Bring CPAP/BIPAP,Diabetes instructions,Durable medical equipment,Medications to take/ avoid,Nasal antibiotic,No ETOH /petroleum product on skin DOS ,NPO,Post-op transportation, Sensory aids,Sturdy shoes/ comfortable clothes,Do not bring valuables and remove jewelry
--- NOTE | 2021-04-25 14:31 | PC.NURSE ---
Pt A&Ox3. VSS, afebrile. Pt reports pain well controlled with po pain medications oxycodone, and vesteril. Pt reports vesteril helps with nausea. Good po intake, eating 100% of meals. Dressing to neck C/D/I. Pt with soft collar in place. PT/OT working with pt this a.m. report she is cleared for discharge. Pt voiding without difficulty s/p cole catheter removal. MD Nassar at bedside talking at length with patient. States she is clear medically for discharge. Pt verbalizes understanding of prescriptions, medication orders, activity, signs of worsening symptoms and follow up appointment. She was escorted to [employer] to private vehicle with all of her belongings, and prescriptions with daughter driving patient.
== END 2021-04-25 13:45 | disposition home or self-care (01) | DRG 472 ==
LOC: OR 11:49 → AC 11:49
PROVIDERS: Admitting Provider Orthopaedic Surgery Orthopaedic Surgery of the Spine; PCP Family Medicine; Referring Provider Orthopaedic Surgery Orthopaedic Surgery of the Spine; Visit Provider Orthopaedic Surgery Orthopaedic Surgery of the Spine
PROC: (CPT 22551; principal; 2021-04-24 13:45)
DX: M48.02 Spinal stenosis, cervical region (principal); I97.52 Accidental puncture and laceration of a circulatory system organ or structure during other procedure; D62 Acute posthemorrhagic anemia; M47.22 Other spondylosis with radiculopathy, cervical region; I12.9 Hypertensive chronic kidney disease with stage 1 through stage 4 chronic kidney disease, or unspecified chronic kidney disease; E10.22 Type 1 diabetes mellitus with diabetic chronic kidney disease; N18.30 Chronic kidney disease, stage 3 unspecified; J45.40 Moderate persistent asthma, uncomplicated; Z96.41 Presence of insulin pump (external) (internal); Z79.4 Long term (current) use of insulin; E07.9 Disorder of thyroid, unspecified; G47.33 Obstructive sleep apnea (adult) (pediatric)
CPT/HCPCS: 22551; 22853; 36415; 72040; 76000; 82962; 85014; 85018; 85025; 97116; 97161; 97165; 97535; C1776; G0378; A9270; J0360; J0690; J1100; J1170; J1815; J2060; J2250; J2405; J2704; J3010